=== PATIENT | female | born 1940 | race Caucasian/White ===

== ENCOUNTER 2024-05-10 04:58 | Inpatient (IN) | payer MEDICARE, SELFPAY ==
[2024-05-10] VITALS (27 sets, daily range): BP systolic 103–122; BP diastolic 53–82; PULSE 89–117; RESP 18–29; TEMP 36.4–37.1; O2SAT 96–100; BMI 28.3
--- NOTE | 2024-05-10 | ECHO_ITS ---
Patient Info Name: Ronda Garcia Age: 84 years : 1940 Gender: Female Ht: 66 in Wt: 175 lbs BSA: 1.94 m2 HR: 90 bpm BP: 122 / 82 mmHg Heart Rhythm: Indeterminant Technical Quality: Poor Exam Date: 05/10/2024 9:26 AM Exam Location: Echo Lab Patient Status: Inpatient Admit Date: 05/10/2024 Staff Ordering Physician: Hesham Hyde MD Waste Hand: Maggy Santos RDCS Attending Provider: Hesham Hyde MD Referring Physician: Mary Ellen BROWN; Exam Type: CA echo dop color flow w con Study Info Indications - respiratory failure Complete two-dimensional, color flow and Doppler transthoracic echocardiogram is performed with contrast to opacify the left ventricle and to improve the deliniation of the left ventricle endocardial borders. Reason for Poor Study: poor echocardiographic windows Summary 1. Very technically difficult study with limited views. 2. Left ventricular chamber dimension is normal. 3. Left ventricular systolic function is hyperdynamic, estimated at >70%. 4. Right ventricular systolic function is normal. 5. Left atrial chamber dimension is severely enlarged. 6. Right atrial chamber dimension is mildly enlarged. 7. There is mild tricuspid valve regurgitation. Left Ventricle Left ventricular chamber dimension is normal. Left ventricular systolic function is hyperdynamic, estimated at >70%. Right Ventricle Right ventricular chamber dimension is normal. Right ventricular systolic function is normal. Left Atria Left atrial chamber dimension is severely enlarged. Right Atria Right atrial chamber dimension is mildly enlarged. Aortic Valve The aortic valve is not well visualized. There is no aortic valve regurgitation. Pulmonic Valve The pulmonic valve is not well visualized. Mitral Valve There is trace mitral valve regurgitation. Tricuspid Valve There is mild tricuspid valve regurgitation. Pericardium/Pleural There is no pericardial effusion. Inferior Vena Cava Inferior vena cava is not well visualized. Aorta The aortic root is not well visualized. Left Ventricular Outflow Tract Name Value Normal LVOT 2D LVOT Diameter 1.87 cm LVOT Doppler LVOT Peak Gradient 5 mmHg LVOT Mean Gradient 3 mmHg LVOT VTI 22.06 cm LVOT VTI/AV VTI Ratio 0.93 LVOT Stroke Volume 60.84 ml LVOT CO 6.59 l/min LVOT CI 3.39 L/min/m2 Pulmonic Valve Name Value Normal PV Doppler PV Peak Gradient 3 mmHg Mitral Valve Name Value Normal MV Doppler MV Decel [place]
--- NOTE | ~2024-05-10 | XR_ITS ---
XR chest 1V portable 05/10/2024 11:08 Indication: Shortness of breath Procedure: AP portable chest Comparison: No prior studies for comparison. Findings: Elevated left diaphragm. There is a spiculated masslike density overlying the left hilum, s uspicious for malignancy. Cardiomegaly with pulmonary edema. Probable small pleural effusion. No pneu mothorax. There are degenerative changes of the shoulders. There are dilated bowel loops in the upper abdomen, possibly ileus. Impression: 1: Spiculated masslike density overlies the left hilum, suspicious for bronchogenic carcinoma. Correl ation with contrast-enhanced CT chest recommended. 2: Cardiomegaly with interstitial edema. Reviewed, dictated and finalized at location B. Impression: 1: Spiculated masslike density overlies the left hilum, suspicious for bronchog enic carcinoma. Correlation with contrast-enhanced CT chest recommended. 2: Cardiomegaly with interstitial edema.
--- NOTE | 2024-05-10 04:36 | ADMGEN ---
This patient, Ronda Garcia, was admitted to IMU Room 206-02 at 0345. Patient/family oriented to hospital policies and general routines including ID bracelet, bed and alarms, visiting hours, pain management, procedures, bathroom and other care routines, personal items, smoking policy, room service/diet, and visiting hours. Information on how to activate the Rapid Response Team has been discussed. Patient/Family are encouraged to report perceived risks to care and to ask questions if they do not understand what they are told or what they should do.
--- NOTE | 2024-05-10 05:00 | ECG_ITS ---
Test Date: 2024-05-10 11:08:51 Measurements Intervals [place] Rate: 100 P: 0 AR: 0 QRS: 16 QRSD: 82 T: 153 QT: 305 QTc: 394 Interpretive Statements ATRIAL FIBRILLATION WITH RAPID VENTRICULAR RESPONSE POSSIBLE RIGHT VENTRICULAR CONDUCTION DELAY NONSPECIFIC ST & T-WAVE ABNORMALITY- DIFFUSE LEADS BASELINE ARTIFACT- I, II, III, AVR, AVF, V3 ABNORMAL ECG No previous ECG available for comparison Electronically Signed On 05-10-2024 11:48:40 CDT by Toni Haley D.O.
[2024-05-10 05:28] LABS: Basophils Percent Auto 0.2 % (0.2-1.2); Eosinophils Percent Auto 0.1 % (0-4.4); Hemoglobin 10.7 g/dL (12.0-15.0); Immature Granulocyte Percent A 0.9 % (0-0.5); Lymphocytes Absolute Auto 0.47 K/mm3 (0.9-3.2); Lymphocytes Percent Auto 4.2 % (18.3-44.2); Mean Corpuscular HGB Conc 32.4 g/dl (32-36); Mean Corpuscular Hemoglobin 30.9 pg (26-34); Mean Corpuscular Volume 95.4 fl (80-100); Mean Platelet Volume 10.5 fl (7.4-10.4); Monocytes Absolute Auto 0.6 K/mm3 (0.1-0.6); Monocytes Percent Auto 5.3 % (2.6-8.5); Neutrophils Absolute Auto 10.1 K/mm3 (1.3-6.7); Neutrophils Percent Auto 89.3 % (45.5-73.1); Platelet Count Result 121 k/mm3 (150-375); Red Blood Count 3.46 M/mm3 (4.2-5.4); White Blood Count 11.3 K/mm3 (4.5-10.0)
[2024-05-10 05:37] LABS: INR 1.4; Prothrombin Time 17.5 Seconds (11.1-14.7)
[2024-05-10 05:38] LABS: Blood Urea Nitrogen 46 mg/dL (7-17); Calcium 9.1 mg/dL (8.4-10.2); Carbon Dioxide > 40 mmol/L (22-30); Chloride 84 mmol/L (98-107); Estimated CRCL calculation 29 ml/min; Estimated Glomerular Filt Rate 36; Glucose 333 mg/dL (65-110); Magnesium 1.9 mg/dL (1.6-2.3); Partial Thromboplastin Time 38.5 Seconds (22.3-36.8); Phosphorus 3.9 mg/dL (2.5-4.5); Potassium 5.3 mmol/L (3.4-5.0); Sodium 129 mmol/L (137-145)
--- NOTE | 2024-05-10 07:37 | PM.IMHP ---
H&P: HPI History of Present Illness Date/Time: 05/10/24 07:37 Chief Complaint: Short of breath and chest pain Narrative: 84 years old lady with history of CAD status post stent, type 2 diabetes, CKD stage 3, hyperlipidemia, persistent AFib CHF, COPD admitted because of shortness breath. Patient started have chest pain shortness of breath yesterday, and patient was brought to the outside hospital from skilled nursing to ED for evaluation treatment. Patient had intermittent chest pain located on the left chest, and also patient had a short of breath. Patient denies fever, chills, cough, abdomen pain, nausea vomiting diarrhea. Upon arrival in the ED, patient is afebrile, patient found have hypoxemia, CT of chest shows no PE but pulmonary congestion, and patient also found have elevated troponin. EKG showed sinus rhythm, no specific ST T-wave changes. Patient was transferred to [facility] for further evaluation treatment. When I saw and examined patient in patient room, patient denied chest pain, but still has some shortness breath. Upon arrival, patient was afebrile, patient is on BiPAP 40% oxygen, patient has leukocytosis 11,300, hemoglobin 10.7, platelet 121, sodium 129, potassium 4.3, elevated BUN creatinine ratio 46/1.4 glucose 333, elevated troponin 0.08, repeated EKG showed sinus rhythm no specific ST-T changes Review of Systems Review of Systems: ROS negative except above REPLACED BY [facility] Social History Social History Smoking status: Never smoker Alcohol intake: never Substance use: never Substance use type: does not use Spiritual care concerns: No Meds Home Medications and Allergies Home Medications Medication Instructions Recorded Confirmed Type allopurinol 100 mg tablet 200 mg PO DAILY 05/10/24 05/10/24 History alogliptin 6.25 mg tablet 6.25 mg PO DAILY 05/10/24 05/10/24 History apixaban 2.5 mg tablet (Eliquis) 2.5 mg PO BID 05/10/24 05/10/24 History aspirin 81 mg capsule 81 mg PO DAILY 05/10/24 05/10/24 History atorvastatin 20 mg tablet 20 mg PO HS 05/10/24 05/10/24 History ceftriaxone 1 gram intravenous 1 g IV DAILY 05/10/24 05/10/24 History solution dicloxacillin 500 mg capsule 500 mg PO QID 05/10/24 05/10/24 History fluoxetine 20 mg capsule 20 mg PO DAILY 05/10/24 05/10/24 History furosemide 40 mg tablet 40 mg PO DAILY 05/10/24 05/10/24 History ipratropium 0.5 mg-albuterol 3 mg 3 ml inhalation TID 05/10/24 05/10/24 History (2.5 mg base)/3 mL nebulization soln metoprolol succinate 25 mg 37.5 mg PO DAILY 05/10/24 05/10/24 History tablet,extended release 24 hr nitroglycerin 0.4 mg sublingual 0.4 mg sublingual Q5M PRN Chest 05/10/24 05/10/24 History tablet Pain omeprazole 20 mg capsule,delayed 20 mg PO BID 05/10/24 05/10/24 History release oxybutynin chloride 10 mg 10 mg PO DAILY 05/10/24 05/10/24 History tablet,extended release 24 hr tramadol 50 mg tablet 50 mg PO TID PRN Pain (Scale Score 05/10/24 05/10/24 History 4-6) Allergies Allergy/AdvReac Type Severity Reaction Status Date / Time amiodarone Allergy Dyspnea / Verified 05/10/24 05:12 SOB clindamycin Allergy Rash Verified 05/10/24 05:14 fentanyl Allergy Hallucinati Verified 05/10/24 05:13 ng lisinopril Allergy Cough Verified 05/10/24 05:13 Vital Signs Vital Signs - 24 hr 05/10/24 03:45 05/10/24 04:58 05/10/24 05:45 Temperature 97.6 F Pulse Rate 89 93 90 Respiratory Rate 28 H 28 H Blood Pressure 122/82 Pulse Oximetry 96 100 Oxygen Delivery BiPAP Fraction of Inspired Oxygen 05/10/24 05:47 05/10/24 05:56 Temperature Pulse Rate 98 Respiratory Rate 24 H Blood Pressure Pulse Oximetry 100 100 Oxygen Delivery BiPAP BiPAP Fraction of Inspired Oxygen 40 Exam Narrative: GENERAL: Pleasant, in no acute distress. Well-nourished. HEENT: Face bruises from previous fall at home, EOMI PERRLA - EYES: EOMI. Anicteric. - HENT: Moist mucous membranes. - LUNGS: Coars
[2024-05-10] MEDS: IPRATROPIUM 0.5 MG/ALBUTEROL SULFATE 2.5 MG AMPUL.NEB 3 ML INHALATION ×3 (08:12→20:21)
[2024-05-10 08:14] LABS: NT Pro B Type Natriuretic Pept 13700 pg/mL (19.9-100)
[2024-05-10 08:22] LABS: Glucose Point of Care 318 mg/dl (65-105)
[2024-05-10 08:27] LABS: Alveolar/Arterial O2 Gradient 91.7 mmHg; Base Excess ABG 7.5 mEq/l (+/-2.0); Fractional Inspired Oxygen 40 %; HCO3 ABG 33.6 mEq/l (22.0-26.0); Oxygen Content ABG 15.4 %vol (16.0-22.0); Oxygen Saturation ABG 98.6 % (95.0-100.0); Oxyhemoglobin 97.9 % THb (90.0-100.0); PCO2 ABG 54.8 mmHg (35.0-45.0); PO2 ABG 130.5 mmHg (80.0-100.0); PO2 FiO2 Ratio Arterial Blood 3.26 %; pH ABG 7.405 (7.350-7.450)
[2024-05-10 08:28] LABS: Device NON-INVASIVE VENT; Modified Allen's Test Pass; Site Drawn LEFT RADIAL
--- NOTE | 2024-05-10 08:28 | PCRCNOTE ---
Stat ABG collection late due to equipment error.
[2024-05-10 08:29] LABS: Non-Invasive Expiratory Pressure 7 CMH2O; Non-Invasive Inspiratory Pressure 12 CMH2O; Non-Invasive Vent Rate 12 /MIN
[2024-05-10] MEDS: INSULIN ASPART (*BKC) 100 UNITS/ML SUB-Q (08:44)
[2024-05-10] MEDS: FLUoxetine HCL 20 MG CAPSULE PO (08:45)
[2024-05-10] MEDS: ASPIRIN 81 MG CHEWABLE TABLET PO (08:45)
[2024-05-10] MEDS: METOPROLOL SUCCINATE EXT REL 12.5 MG TABCR 37.5 MG PO (08:45)
[2024-05-10] MEDS: APIXABAN 2.5 MG TABLET PO ×2 (08:45→20:48)
[2024-05-10] MEDS: FUROSEMIDE 40 MG TABLET PO (08:46)
[2024-05-10] MEDS: oxyBUTYnin CHLORIDE XL 5 MG TAB.ER.24 10 MG PO (08:46)
[2024-05-10] MEDS: SITagliptin PHOSPHATE 25 MG TABLET PO (08:46)
[2024-05-10 09:00] LABS: Sodium Urine Random 20 meq/L
[2024-05-10] MEDS: DICLOXACILLIN SODIUM 250 MG CAPSULE 500 MG PO ×4 (09:02→20:48)
[2024-05-10 09:14] LABS: Iron 31 ug/dL (37-170)
[2024-05-10] MEDS: PERFLUTREN LIPID MICROSPHERES 1.5 ML VIAL DILUTED TO 10 ML TOTAL VOLUME IV PUSH (09:25)
[2024-05-10 09:28] LABS: Troponin I 0.065 ng/mL (0.000-0.034)
[2024-05-10 09:29] LABS: Percent Iron Saturation 12 % (20-50)
--- NOTE | 2024-05-10 11:23 | IVDEFINITY ---
Prior to administration of IV Definity the patient was educated on the risks and benefits of the imaging enhancing agent including potential adverse side effects. The patient verbalized understanding. Allergies were verified. No exclusion criteria were identified and at least one of the following inclusion criteria were met: 1) physician request, 2) patient technically difficult to image (per the [place] [employer]ocardi[employer] guidelines of two or more segments not discernable within the apical view), or 3) questionable left ventricular function. ?
--- NOTE | 2024-05-10 11:40 | PM.CNCAR ---
Assessment and Plan Assessment and plan (1) Elevated troponin: Code(s): R79.89 - Other specified abnormal findings of blood chemistry Status: Acute Assessment and Plan: Troponin mildly elevated and downtrending. Probably secondary to hypoxia, CHF, CKD. (2) Acute on chronic heart failure: Code(s): I50.9 - Heart failure, unspecified Status: Acute Assessment and Plan: Continue with IV furosemide for now. Echo showed normal EF, no significant valve disease, normal RV function. Daily weights Strict I&O CHF counseling Wonder if she has undiagnosed CLARENCE. Will check apnea link Trend NTpro BNP Obtain records from [facility] (3) Chest pain: Code(s): R07.9 - Chest pain, unspecified Status: Acute Assessment and Plan: Resolved. (4) Atrial fibrillation: Code(s): I48.91 - Unspecified atrial fibrillation Status: Acute Assessment and Plan: Paroxysmal atrial fibrillation. Rate control with metoprolol. Up titrate as needed. Continue a/c with apixaban (dose adjusted for age, renal function). If she has further syncope/falls may need to consider stopping a/c as the risk of life threatening bleeding may outweigh benefit. History of Present Illness History of Present Illness Consult date/time: 05/10/24 11:40 Requesting physician: Fior Chadwick MD Consult reason: congestive heart failure Reason For Visit: CHF Narrative: Ronda Garcia is an 84 year old female with coronary artery disease and atrial fibrillation. 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 She does not recall the details of her stenting but she said it was years ago and she has had multiple heart attacks since that time. She comes to the hospital now with a chief complaint of shortness of breath. She reports a recent hospitalization at another hospital for the same reason. She did feel better after she was released from the hospital but gradually became more short of breath. She also sustained a fall from her wheelchair which sounds like a result of orthostatic hypotension. She has been diuresed some here and does feel better though she is still short of breath especially with exertion. She denies swelling but does have orthopnea. Yesterday she had some chest pain but it has resolved and she denies any chest pain currently. Review of Systems Review of Systems: All systems reviewed & are unremarkable except as noted in HPI and below [facility] Social History Social History Smoking status: Never smoker Alcohol intake: never Substance use: never Substance use type: does not use Spiritual care concerns: No Meds Home Medications and Allergies Home Medications Medication Instructions Recorded Confirmed Type allopurinol 100 mg tablet 200 mg PO DAILY 05/10/24 05/10/24 History alogliptin 6.25 mg tablet 6.25 mg PO DAILY 05/10/24 05/10/24 History apixaban 2.5 mg tablet (Eliquis) 2.5 mg PO BID 05/10/24 05/10/24 History aspirin 81 mg capsule 81 mg PO DAILY 05/10/24 05/10/24 History atorvastatin 20 mg tablet 20 mg PO HS 05/10/24 05/10/24 History ceftriaxone 1 gram intravenous 1 g IV DAILY 05/10/24 05/10/24 History solution dicloxacillin 500 mg capsule 500 mg PO QID 05/10/24 05/10/24 History fluoxetine 20 mg capsule 20 mg PO DAILY 05/10/24 05/10/24 History furosemide 40 mg tablet 40 mg PO DAILY 05/10/24 05/10/24 History ipratropium 0.5 mg-albuterol 3 mg 3 ml inhalation TID 05/10/24 05/10/24 History (2.5 mg base)/3 mL nebulization soln metoprolol succinate 25 mg 37.5 mg PO DAILY 05/10/24 05/10/24 History tablet,extended release 24 hr nitroglycerin 0.4 mg sublingual 0.4 mg sublingual Q5M PRN Chest 05/10/24 05/10/24 History tablet Pain omeprazole 20 mg capsule,delayed 20 mg PO BID 05/10/24 05/10/24 History release oxybutynin chloride 10 mg 10 mg PO DAILY 05/10/24 05/10/24 History table
[2024-05-10 11:49] LABS: Appearance Urine Clear (Clear); Bacteria Urine None Seen /hpf; Bilirubin Urine Negative (Negative); Blood Urine Negative (Negative); Color Urine Yellow (Yellow); Glucose Urine UA Trace mg/dL (Negative); Ketones Urine Negative (Negative); Leukocyte Esterase Ur Negative LEU/UL (Negative); Nitrate Urine Negative (Negative); Protein Urine 1+ mg/dL (Negative); RBC Urine 0-2 /hpf (0-2); Specific Grav Ur 1.036 (1.001-1.035); Squamous Epithelial Cell Urine None Seen /hpf (Few); Urobilinogen Urine 0.2 mg/dL (<2.0); WBC Urine 0-5 /hpf (0-3); pH Urine 5.5 (5.0-9.0)
[2024-05-10 12:00] LABS: Add Urine Microscopic? YES
[2024-05-10 12:31] LABS: Troponin I 0.061 ng/mL (0.000-0.034)
[2024-05-10 16:26] LABS: Glucose Point of Care 197 mg/dl (65-105)
[2024-05-10 16:26] LABS: Glucose Point of Care 97 mg/dl (65-105)
[2024-05-10] MEDS: FUROSEMIDE INJ 40 MG/4 ML VIAL IV PUSH (16:58)
[2024-05-10] MEDS: ATORVASTATIN 20 MG TABLET PO (20:48)
[2024-05-10 20:58] LABS: Glucose Point of Care 152 mg/dl (65-105)
--- NOTE | 2024-05-10 21:17 | PCRCNOTE ---
Patient refused apnea link tonight.
[2024-05-11] VITALS (23 sets, daily range): BP systolic 104–119; BP diastolic 74–87; PULSE 88–121; RESP 16–20; TEMP 36.1–36.6; O2SAT 94–100
[2024-05-11] MEDS: traMADol HCL (*CRX) 50 MG TABLET PO (06:15)
[2024-05-11 06:37] LABS: Glucose Point of Care 199 mg/dl (65-105)
[2024-05-11 06:59] LABS: Anion Gap 6 mmol/L (4-12); Blood Urea Nitrogen 47 mg/dL (7-17); Calcium 9.2 mg/dL (8.4-10.2); Carbon Dioxide 38 mmol/L (22-30); Chloride 87 mmol/L (98-107); Estimated CRCL calculation 28 ml/min; Estimated Glomerular Filt Rate 33; Glucose 198 mg/dL (65-110); Potassium 4.3 mmol/L (3.4-5.0); Sodium 131 mmol/L (137-145)
[2024-05-11 07:06] LABS: NT Pro B Type Natriuretic Pept 6520 pg/mL (19.9-100)
[2024-05-11] MEDS: IPRATROPIUM 0.5 MG/ALBUTEROL SULFATE 2.5 MG AMPUL.NEB 3 ML INHALATION ×3 (08:09→20:23)
[2024-05-11] MEDS: SITagliptin PHOSPHATE 25 MG TABLET PO (09:17)
[2024-05-11] MEDS: DICLOXACILLIN SODIUM 250 MG CAPSULE 500 MG PO ×3 (09:18→16:34)
[2024-05-11] MEDS: FLUoxetine HCL 20 MG CAPSULE PO (09:18)
[2024-05-11] MEDS: oxyBUTYnin CHLORIDE XL 5 MG TAB.ER.24 10 MG PO (09:18)
[2024-05-11] MEDS: ASPIRIN 81 MG CHEWABLE TABLET PO (09:18)
[2024-05-11] MEDS: APIXABAN 2.5 MG TABLET PO ×2 (09:18→20:44)
[2024-05-11] MEDS: METOPROLOL SUCCINATE EXT REL 12.5 MG TABCR 37.5 MG PO (09:19)
[2024-05-11] MEDS: FUROSEMIDE INJ 40 MG/4 ML VIAL IV PUSH ×2 (09:20→16:34)
--- NOTE | 2024-05-11 09:41 | PM.IMPN ---
Progress Note: A&P Assessment and Plan (1) Chest pain: Code(s): R07.9 - Chest pain, unspecified Status: Acute (2) Acute on chronic heart failure: Code(s): I50.9 - Heart failure, unspecified Status: Acute (3) Acute respiratory failure with hypoxemia: Code(s): J96.01 - Acute respiratory failure with hypoxia Status: Acute (4) COPD exacerbation: Code(s): J44.1 - Chronic obstructive pulmonary disease with (acute) exacerbation Status: Acute (5) Hyponatremia: Code(s): E87.1 - Hypo-osmolality and hyponatremia Status: Acute (6) CKD stage 3b, GFR 30-44 ml/min: Code(s): N18.32 - Chronic kidney disease, stage 3b Status: Acute (7) Elevated troponin: Code(s): R79.89 - Other specified abnormal findings of blood chemistry Status: Acute (8) Uncontrolled type 2 diabetes mellitus: Status: Acute Plan Chest pain Patient has history of CAD, status post stent, patient started have chest pain yesterday Elevated troponins, but EKG shows sinus rhythm no specific ST-T changes The patient is on aspirin 81 mg daily p.o., Eliquis 2.5 mg b.i.d. p.o., Lipitor 20 mg daily p.o.. Follow-up serial troponin, echocardiogram, Palpitation telemetry monitoring Consult wood shop teacher for evaluation treatment Acute on chronic heart failure Shortness breath, possible due to CHF exacerbation CTA showed no PE But Pulmonary Edema, BMP 13,700 Course on bilateral lungs base Pending echocardiogram start Lasix 40 mg b.i.d. IV push Follow-up input output Acute respiratory failure Possible due to CHF and COPD Continue DuoNeb q.6 hours scheduled, albuterol nebulizer Q 4 as needed Continue O2 therapy to keep pulse ox above 94 Paroxysmal AFib Now patient has sinus rhythm Continue Eliquis 2.5 mg b.i.d. p.o. and metoprolol at home dose Uncontrolled type 2 diabetes Continue home medication sitagliptin 25 mg daily p.o., add insulin sliding scale a.c. q.h.s. GERD Continue omeprazole 20 mg daily p.o. Leukocytosis Patient is on ceftriaxone 1 g IV daily, urinalysis pending Consult PT OT coordinator for evaluation and assisting placement Patient may stay more than 2 midnights in the hospital Patient wishes DNR DNI Subjective Date/time seen: 05/11/24 09:41 Interval history: I saw and examined the patient today, patient feels better, patient has anxiety, dyspnea is improving, still significant mild exertion Exam Narrative: GENERAL: Pleasant, in no acute distress. Well-nourished. HEENT: Face bruises from previous fall at home, EOMI PERRLA - EYES: EOMI. Anicteric. - HENT: Moist mucous membranes. - LUNGS: Coarse breath sound bilateral base - CARDIOVASCULAR: Regular rate and rhythm. No murmur. No JVD. - ABDOMEN: Soft, non-tender and non-distended. No palpable masses. - EXTREMITIES: No edema. Peripheral pulses 2+. Non-tender. - NEUROLOGIC: No focal neurological deficits. CN II-XII grossly intact. - PSYCHIATRIC: Awake, Alert and oriented x 3. Appropriate mood and affect. - SKIN: Bruises. - LYMPH: No cervical lymphadenopathy. Objective Data Vital Signs Vital Signs: Vital Signs - 24 hr 05/10/24 10:00 05/10/24 11:34 05/10/24 12:00 Temperature 98.2 F Pulse Rate 110 H 108 H 92 Respiratory Rate 28 H Blood Pressure 106/62 Pulse Oximetry 100 100 Oxygen Delivery Nasal Cannula Oxygen Flow Rate 3 05/10/24 12:00 05/10/24 13:24 05/10/24 13:25 Temperature Pulse Rate 106 H 97 96 Respiratory Rate 20 Blood Pressure Pulse Oximetry 99 Oxygen Delivery Nasal Cannula Oxygen Flow Rate 3 05/10/24 13:34 05/10/24 14:00 05/10/24 15:42 Temperature 98.2 F Pulse Rate 93 109 H 105 H Respiratory Rate 20 28 H Blood Pressure 103/53 L Pulse Oximetry 99 Oxygen Delivery Oxygen Flow Rate 05/10/24 16:00 05/10/24 18:00 05/10/24 20:00 Temperature 98.6 F Pulse Rate 105 H 97 104 H Respiratory Rate 1
[2024-05-11 11:46] LABS: Glucose Point of Care 224 mg/dl (65-105)
--- NOTE | 2024-05-11 12:24 | PM.PNCARD ---
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 Continue with metoprolol Subjective Date/time seen: 05/11/24 12:24 Interval history: no acute events Still feels SOB with activity Limited physical activity at baseline Review of Systems Review of Systems: All systems reviewed & are unremarkable except as noted in HPI and below Exam Const: General: comfortable and no acute distress Other: Able to lie flat Facial ecchymosis HENMT: Face/Nose/Sinus: Normal nares present and no epistaxis Mouth: Yes moist mucous membranes Eyes: Sclera: sclerae normal Pupils: Equal, round and reactive pupils present Resp: Auscultation: clear to auscultation bilaterally and lung sounds not diminished Other: No chest wall tenderness Cardio: Rate: regular rate Rhythm: regular rhythm Heart sounds: no gallops, no murmurs and no rubs Extrem: General: no edema Other: Normal capillary refills Intact distal pulses. Objective Data Vital Signs Vital Signs: Vital Signs - 24 hr 05/10/24 13:24 05/10/24 13:25 05/10/24 13:34 Temperature Pulse Rate 97 96 93 Respiratory Rate 20 20 Blood Pressure Pulse Oximetry 99 Oxygen Delivery Nasal Cannula Oxygen Flow Rate 3 05/10/24 14:00 05/10/24 15:42 05/10/24 16:00 Temperature 36.8 C Pulse Rate 109 H 105 H 105 H Respiratory Rate 28 H Blood Pressure 103/53 L Pulse Oximetry 99 Oxygen Delivery Oxygen Flow Rate 05/10/24 18:00 05/10/24 20:00 05/10/24 20:21 Temperature 37.0 C Pulse Rate 97 104 H 106 H Respiratory Rate 19 20 Blood Pressure 109/71 Pulse Oximetry 98 Oxygen Delivery Oxygen Flow Rate 05/10/24 20:21 05/10/24 20:30 05/10/24 20:00 Temperature Pulse Rate 106 H 101 H 104 H Respiratory Rate 20 19 Blood Pressure Pulse Oximetry 96 98 Oxygen Delivery Nasal Cannula Nasal Cannula Oxygen Flow Rate 3 3 05/10/24 23:41 05/10/24 20:00 05/10/24 22:00 Temperature 37.1 C Pulse Rate 113 H 110 H 117 H Respiratory Rate 18 Blood Pressure 113/65 Pulse Oximetry 98 Oxygen Delivery Oxygen Flow Rate 05/11/24 00:00 05/11/24 02:00 05/11/24 04:00 Temperature 36.4 C Pulse Rate 111 H 114 H 115 H Respiratory Rate 18 Blood Pressure 119/76 Pulse Oximetry 98 Oxygen Delivery Oxygen Flow Rate 05/11/24 04:00 05/11/24 06:00 05/11/24 07:56 Temperature 36.1 C L Pulse Rate 121 H 107 H 108 H Respiratory Rate 16 Blood Pressure 113/87 Pulse Oximetry 99 Oxygen Delivery Oxygen Flow Rate 05/11/24 08:09 05/11/24 08:09 05/11/24 08:23 Temperature Pulse Rate 102 H 102 H 103 H Respiratory Rate 20 20 20 Blood Pressure Pulse Oximetry 96 Oxygen Delivery Nasal Cannula Oxygen Flow Rate 3 05/11/24 09:19 05/11/24 08:00 05/11/24 11:48 Temperature 36.6 C Pulse Rate 101 H 96 99 Respiratory Rate 20 Blood Pressure 116/81 Pulse Oximetry 100 Oxygen Delivery Oxygen Flow Rate Intake/Output Intake/Output: Intake & Output 05/08/24 05/09/24 05/10/24 05/11/24 23:59 23:59 23:59 23:59 Intake Total 780 710 Output Total 450 300 Balance 330 410 Meds/Results Medications: Active Medications Generic Name Dose Route Start Last Admin Trade Name Freq PRN Reason Stop Dose Admin Acetaminophen 650 mg 05/10/24 04:58 Acetaminophen 325 Mg Tablet PO Q4H PRN Mild Pain (1-3) or Fever Al Hydrox/Mg Hydrox/Simethicone 30 ml 05/10/24 04:58 Mag Hydrox/Al Hydrox/Simeth 30 Ml Udc PO QID PRN Dyspepsia Albuterol/Ipratropium 3 ml
[2024-05-11] MEDS: SENNA/DOCUSATE SODIUM TABLET 1 TAB PO ×2 (12:44→16:34)
[2024-05-11] MEDS: ALPRAZolam (*CRX) 0.5 MG TABLET PO (12:45)
[2024-05-11] MEDS: ACETAMINOPHEN 325 MG TABLET 650 MG PO (12:45)
[2024-05-11 16:07] LABS: Glucose Point of Care 191 mg/dl (65-105)
--- NOTE | 2024-05-11 17:04 | PC.NURSE ---
This patient, Ronda Garcia, was transferred to [facility] on 05/11/24 at 1704. Personal belongings sent with patient. Report given to Mary VILLANUEVA. Appropriate documentation sent with patient.
--- NOTE | 2024-05-11 17:35 | PC.NURSE ---
This patient, Ronda Garcia, was received from IMU on 05/11/24 at 1814. Patient/family oriented to unit policies and routines. report received from Rebeca VILLANUEVA
[2024-05-11 20:39] LABS: Glucose Point of Care 202 mg/dl (65-105)
[2024-05-11] MEDS: ATORVASTATIN 20 MG TABLET PO (20:44)
[2024-05-11] MEDS: INSULIN ASPART (*BKC) 100 UNITS/ML SUB-Q (20:45)
[2024-05-12] VITALS (24 sets, daily range): BP systolic 98–131; BP diastolic 61–89; PULSE 75–108; RESP 18–24; TEMP 36.2–36.8; O2SAT 94–100
[2024-05-12] MEDS: IPRATROPIUM 0.5 MG/ALBUTEROL SULFATE 2.5 MG AMPUL.NEB 3 ML INHALATION ×4 (01:57→20:15)
--- NOTE | 2024-05-12 08:05 | PM.IMPN ---
Progress Note: A&P Assessment and Plan (1) Chest pain: Code(s): R07.9 - Chest pain, unspecified Status: Acute (2) Acute on chronic heart failure: Code(s): I50.9 - Heart failure, unspecified Status: Acute (3) Acute respiratory failure with hypoxemia: Code(s): J96.01 - Acute respiratory failure with hypoxia Status: Acute (4) COPD exacerbation: Code(s): J44.1 - Chronic obstructive pulmonary disease with (acute) exacerbation Status: Acute (5) Hyponatremia: Code(s): E87.1 - Hypo-osmolality and hyponatremia Status: Acute (6) CKD stage 3b, GFR 30-44 ml/min: Code(s): N18.32 - Chronic kidney disease, stage 3b Status: Acute (7) Elevated troponin: Code(s): R79.89 - Other specified abnormal findings of blood chemistry Status: Acute (8) Uncontrolled type 2 diabetes mellitus: Status: Acute Plan Chest pain Patient has history of CAD, status post stent, patient started have chest pain yesterday Elevated troponins, but EKG shows sinus rhythm no specific ST-T changes The patient is on aspirin 81 mg daily p.o., Eliquis 2.5 mg b.i.d. p.o., Lipitor 20 mg daily p.o.. Follow-up serial troponin, echocardiogram, Palpitation telemetry monitoring Consult winchman/crane operator for evaluation treatment Acute on chronic heart failure Shortness breath, possible due to CHF exacerbation CTA showed no PE But Pulmonary Edema, BMP 13,700 Course on bilateral lungs base Pending echocardiogram start Lasix 40 mg b.i.d. IV push CXR; Cardiomegaly with interstitial edema. Follow-up input output Acute respiratory failure Possible due to CHF and COPD Continue DuoNeb q.6 hours scheduled, albuterol nebulizer Q 4 as needed Continue O2 therapy to keep pulse ox above 94 Left hilar mass CXR 05/10 reports 1: Spiculated masslike density overlies the left hilum, suspicious for bronchogenic carcinoma. Radiology recommends correlation with contrast-enhanced CT chest recommended. 2: Cardiomegaly with interstitial edema. I reviewed the report of the CTA in [facility], radiologist did not report not mass Will consult field crop i farmworker for evaluation treatment Paroxysmal AFib Now patient has sinus rhythm Continue Eliquis 2.5 mg b.i.d. p.o. and metoprolol at home dose Uncontrolled type 2 diabetes Continue home medication sitagliptin 25 mg daily p.o., add insulin sliding scale a.c. q.h.s. GERD Continue omeprazole 20 mg daily p.o. Leukocytosis Patient is on ceftriaxone 1 g IV daily, urinalysis pending Consult PT OT coordinator for evaluation and assisting placement Patient may stay more than 2 midnights in the hospital Patient wishes DNR DNI Subjective Date/time seen: 05/12/24 08:05 Interval history: I saw and examined the patient today, patient feels better, patient has anxiety, dyspnea is improving, still significant mild exertion Exam Narrative: GENERAL: Pleasant, in no acute distress. Well-nourished. HEENT: Face bruises from previous fall at home, EOMI PERRLA - EYES: EOMI. Anicteric. - HENT: Moist mucous membranes. - LUNGS: Coarse breath sound bilateral base - CARDIOVASCULAR: Regular rate and rhythm. No murmur. No JVD. - ABDOMEN: Soft, non-tender and non-distended. No palpable masses. - EXTREMITIES: No edema. Peripheral pulses 2+. Non-tender. - NEUROLOGIC: No focal neurological deficits. CN II-XII grossly intact. - PSYCHIATRIC: Awake, Alert and oriented x 3. Appropriate mood and affect. - SKIN: Bruises. - LYMPH: No cervical lymphadenopathy. Objective Data Vital Signs Vital Signs: Vital Signs - 24 hr 05/11/24 08:09 05/11/24 08:09 05/11/24 08:23 Temperature Pulse Rate 102 H 102 H 103 H Respiratory Rate 20 20 20 Blood Pressure Pulse Oximetry 96 Oxygen Delivery Nasal Cannula Oxygen Flow Rate 3 05/11/24 09:19 05/11/24 11:48 05/11/24 10:00 Temperature 97.8 F Pulse Rate 101 H 99 104 H Respirat
[2024-05-12 08:15] LABS: Glucose Point of Care 134 mg/dl (65-105)
[2024-05-12] MEDS: SENNA/DOCUSATE SODIUM TABLET 1 TAB PO ×2 (09:12→18:48)
[2024-05-12] MEDS: FLUoxetine HCL 20 MG CAPSULE PO (09:12)
[2024-05-12] MEDS: APIXABAN 2.5 MG TABLET PO ×2 (09:12→21:17)
[2024-05-12] MEDS: oxyBUTYnin CHLORIDE XL 5 MG TAB.ER.24 10 MG PO (09:12)
[2024-05-12] MEDS: traMADol HCL (*CRX) 50 MG TABLET PO ×2 (09:12→21:17)
[2024-05-12] MEDS: ASPIRIN 81 MG CHEWABLE TABLET PO (09:12)
[2024-05-12] MEDS: METOPROLOL SUCCINATE EXT REL 12.5 MG TABCR 37.5 MG PO (09:12)
[2024-05-12] MEDS: SITagliptin PHOSPHATE 25 MG TABLET PO (09:12)
[2024-05-12] MEDS: FUROSEMIDE INJ 40 MG/4 ML VIAL IV PUSH ×2 (09:13→18:48)
[2024-05-12] MEDS: DICLOXACILLIN SODIUM 250 MG CAPSULE 500 MG PO ×4 (09:15→21:17)
[2024-05-12 11:49] LABS: Glucose Point of Care 181 mg/dl (65-105)
--- NOTE | 2024-05-12 14:47 | PM.PNCARD ---
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 b.i.d. Continue with apixaban 2.5 mg b.i.d. Continue with metoprolol Subjective Date/time seen: 05/12/24 14:47 Interval history: No acute events Review of Systems Review of Systems: All systems reviewed & are unremarkable except as noted in HPI and below Exam Const: General: comfortable and no acute distress Other: Able to lie flat Facial ecchymosis HENMT: Face/Nose/Sinus: Normal nares present and no epistaxis Mouth: Yes moist mucous membranes Eyes: Sclera: sclerae normal Pupils: Equal, round and reactive pupils present Resp: Auscultation: clear to auscultation bilaterally and lung sounds not diminished Other: No chest wall tenderness Cardio: Rate: regular rate Rhythm: regular rhythm Heart sounds: no gallops, no murmurs and no rubs Extrem: General: no edema Other: Normal capillary refills Intact distal pulses. Objective Data Vital Signs Vital Signs: Vital Signs - 24 hr 05/11/24 16:00 05/11/24 17:32 05/11/24 18:18 Temperature Pulse Rate 100 101 H Respiratory Rate Blood Pressure Pulse Oximetry 97 Oxygen Delivery Nasal Cannula Oxygen Flow Rate 05/11/24 20:23 05/11/24 20:23 05/11/24 20:33 Temperature Pulse Rate 93 95 Respiratory Rate 20 20 Blood Pressure Pulse Oximetry 99 Oxygen Delivery Nasal Cannula Oxygen Flow Rate 05/11/24 20:00 05/11/24 20:00 05/12/24 00:00 Temperature 36.4 C 36.4 C Pulse Rate 94 89 Respiratory Rate 18 18 Blood Pressure 104/74 98/71 L Pulse Oximetry 100 97 98 Oxygen Delivery Nasal Cannula Oxygen Flow Rate 05/12/24 02:01 05/11/24 23:50 05/12/24 05:08 Temperature Pulse Rate 89 90 Respiratory Rate 20 20 22 H Blood Pressure Pulse Oximetry 99 98 Oxygen Delivery BiPAP BiPAP Oxygen Flow Rate 05/12/24 04:00 05/11/24 22:09 05/12/24 02:09 Temperature 36.6 C Pulse Rate 99 88 92 Respiratory Rate 20 Blood Pressure 116/68 Pulse Oximetry 97 Oxygen Delivery Oxygen Flow Rate 05/12/24 04:00 05/12/24 07:00 05/12/24 07:00 Temperature Pulse Rate 98 84 84 Respiratory Rate 18 Blood Pressure Pulse Oximetry 94 94 Oxygen Delivery Nasal Cannula Oxygen Flow Rate 2 05/12/24 07:00 05/12/24 07:10 05/12/24 08:00 Temperature Pulse Rate 84 86 86 Respiratory Rate 18 18 Blood Pressure Pulse Oximetry Oxygen Delivery Oxygen Flow Rate 05/12/24 09:08 05/12/24 09:12 05/12/24 10:00 Temperature 36.2 C L Pulse Rate 75 84 89 Respiratory Rate 20 Blood Pressure 110/68 114/69 Pulse Oximetry 100 Oxygen Delivery Oxygen Flow Rate 05/12/24 12:00 05/12/24 13:05 05/12/24 13:15 Temperature Pulse Rate 79 82 84 Respiratory Rate 18 18 Blood Pressure Pulse Oximetry Oxygen Delivery Oxygen Flow Rate 05/12/24 14:00 Temperature 36.4 C L Pulse Rate 89 Respiratory Rate 24 H Blood Pressure 114/61 Pulse Oximetry 100 Oxygen Delivery Oxygen Flow Rate Intake/Output Intake/Output: Intake & Output 05/09/24 05/10/24 05/11/24 05/12/24 23:59 23:59 23:59 23:59 Intake Total 780 950 840 Output Total 450 800 550 Balance 330 150 290 Meds/Results Medications: Active Medications Generic Name Dose Route Start Last Admin Trade Name Freq PRN Reason Stop Dose Admin Acetaminophen 650 mg 05/10/24 04:58 05/11/24 12:45 Acetaminophen 325 Mg Tablet PO 650 mg Q4H PRN Administration Mild Pain (1-3) or Fever Al Hydrox/Mg Hydrox/Simethicone 30 ml 05/10/24 04:58 Mag Hydrox/A
[2024-05-12 16:49] LABS: Glucose Point of Care 176 mg/dl (65-105)
[2024-05-12 19:58] LABS: Glucose Point of Care 191 mg/dl (65-105)
[2024-05-12] MEDS: ATORVASTATIN 20 MG TABLET PO (21:17)
[2024-05-13] VITALS (20 sets, daily range): BP systolic 94–115; BP diastolic 60–80; PULSE 83–109; RESP 16–24; TEMP 36.3–36.8; O2SAT 91–100
[2024-05-13] MEDS: IPRATROPIUM 0.5 MG/ALBUTEROL SULFATE 2.5 MG AMPUL.NEB 3 ML INHALATION ×4 (07:44→20:52)
[2024-05-13 07:49] LABS: Glucose Point of Care 141 mg/dl (65-105)
--- NOTE | 2024-05-13 08:11 | PM.IMPN ---
Progress Note: A&P Assessment and Plan (1) Chest pain: Code(s): R07.9 - Chest pain, unspecified Status: Acute (2) Acute on chronic heart failure: Code(s): I50.9 - Heart failure, unspecified Status: Acute (3) Acute respiratory failure with hypoxemia: Code(s): J96.01 - Acute respiratory failure with hypoxia Status: Acute (4) COPD exacerbation: Code(s): J44.1 - Chronic obstructive pulmonary disease with (acute) exacerbation Status: Acute (5) Hyponatremia: Code(s): E87.1 - Hypo-osmolality and hyponatremia Status: Acute (6) CKD stage 3b, GFR 30-44 ml/min: Code(s): N18.32 - Chronic kidney disease, stage 3b Status: Acute (7) Elevated troponin: Code(s): R79.89 - Other specified abnormal findings of blood chemistry Status: Acute (8) Uncontrolled type 2 diabetes mellitus: Status: Acute Plan Chest pain Patient has history of CAD, status post stent, patient started have chest pain yesterday Elevated troponins, but EKG shows sinus rhythm no specific ST-T changes The patient is on aspirin 81 mg daily p.o., Eliquis 2.5 mg b.i.d. p.o., Lipitor 20 mg daily p.o.. Follow-up serial troponin, echocardiogram, Palpitation telemetry monitoring Consult sales systems engineer for evaluation treatment Acute on chronic heart failure Shortness breath, possible due to CHF exacerbation CTA showed no PE But Pulmonary Edema, BMP 13,700 Course on bilateral lungs base Pending echocardiogram start Lasix 40 mg b.i.d. IV push CXR; Cardiomegaly with interstitial edema. Follow-up input output Acute respiratory failure Possible due to CHF and COPD Continue DuoNeb q.6 hours scheduled, albuterol nebulizer Q 4 as needed Continue O2 therapy to keep pulse ox above 94 Left hilar mass CXR 05/10 reports 1: Spiculated masslike density overlies the left hilum, suspicious for bronchogenic carcinoma. Radiology recommends correlation with contrast-enhanced CT chest recommended. 2: Cardiomegaly with interstitial edema. I reviewed the report of the CTA in [facility], radiologist did not report mass Will consult nuclear physics teacher for evaluation treatment Paroxysmal AFib Now patient has sinus rhythm Continue Eliquis 2.5 mg b.i.d. p.o. and metoprolol at home dose Uncontrolled type 2 diabetes Continue home medication sitagliptin 25 mg daily p.o., add insulin sliding scale a.c. q.h.s. GERD Continue omeprazole 20 mg daily p.o. Leukocytosis Patient is on ceftriaxone 1 g IV daily, urinalysis pending Consult PT OT coordinator for evaluation and assisting placement Patient may stay more than 2 midnights in the hospital Patient wishes DNR DNI Subjective Date/time seen: 05/13/24 08:11 Interval history: I saw and examined the patient today, patient feels better, patient denies hemoptysis, smoking history, dyspnea is improving, still significant mild exertion Exam Narrative: GENERAL: Pleasant, in no acute distress. Well-nourished. HEENT: Face bruises from previous fall at home, EOMI PERRLA - EYES: EOMI. Anicteric. - HENT: Moist mucous membranes. - LUNGS: Coarse breath sound bilateral base - CARDIOVASCULAR: Regular rate and rhythm. No murmur. No JVD. - ABDOMEN: Soft, non-tender and non-distended. No palpable masses. - EXTREMITIES: No edema. Peripheral pulses 2+. Non-tender. - NEUROLOGIC: No focal neurological deficits. CN II-XII grossly intact. - PSYCHIATRIC: Awake, Alert and oriented x 3. Appropriate mood and affect. - SKIN: Bruises. - LYMPH: No cervical lymphadenopathy. Objective Data Vital Signs Vital Signs: Vital Signs - 24 hr 05/12/24 09:08 05/12/24 09:12 05/12/24 10:00 Temperature 97.2 F L Pulse Rate 75 84 89 Respiratory Rate 20 Blood Pressure 110/68 114/69 Pulse Oximetry 100 Oxygen Delivery Oxygen Flow Rate Fraction of Inspired Oxygen 05/12/24 12:00 05/12/24 13:05 05/12/24 13:15 Temperature
[2024-05-13 08:19] LABS: Basophils Percent Auto 0.5 % (0.2-1.2); Eosinophils Absolute Auto 0.2 K/mm3 (0-0.3); Eosinophils Percent Auto 2.2 % (0-4.4); Hematocrit 35.4 % (37.0-47.0); Hemoglobin 11.1 g/dL (12.0-15.0); Immature Granulocyte Absolute 0.06 K/mm3 (0.00-0.031); Immature Granulocyte Percent A 0.8 % (0-0.5); Lymphocytes Absolute Auto 0.59 K/mm3 (0.9-3.2); Lymphocytes Percent Auto 7.5 % (18.3-44.2); Mean Corpuscular HGB Conc 31.4 g/dl (32-36); Mean Corpuscular Hemoglobin 30.6 pg (26-34); Mean Corpuscular Volume 97.5 fl (80-100); Mean Platelet Volume 10.7 fl (7.4-10.4); Monocytes Absolute Auto 0.7 K/mm3 (0.1-0.6); Monocytes Percent Auto 9.3 % (2.6-8.5); Neutrophils Absolute Auto 6.3 K/mm3 (1.3-6.7); Neutrophils Percent Auto 79.7 % (45.5-73.1); Platelet Count Result 166 k/mm3 (150-375); Red Blood Count 3.63 M/mm3 (4.2-5.4); White Blood Count 7.9 K/mm3 (4.5-10.0)
[2024-05-13 08:41] LABS: Alanine Aminotransferase 14 U/L (6-35); Albumin Level 3.4 g/dL (3.5-5.1); Alkaline Phosphatase 64 U/L (38-126); Anion Gap 7 mmol/L (4-12); Aspartate Amino Transferase 26 U/L (14-36); Bilirubin,Total 0.7 mg/dL (0.2-1.3); Blood Urea Nitrogen 58 mg/dL (7-17); Calcium 8.9 mg/dL (8.4-10.2); Carbon Dioxide 39 mmol/L (22-30); Chloride 85 mmol/L (98-107); Estimated CRCL calculation 28 ml/min; Estimated Glomerular Filt Rate 33; Glucose 135 mg/dL (65-110); Potassium 4.1 mmol/L (3.4-5.0); Sodium 131 mmol/L (137-145)
[2024-05-13] MEDS: DICLOXACILLIN SODIUM 250 MG CAPSULE 500 MG PO ×4 (10:19→20:47)
[2024-05-13] MEDS: oxyBUTYnin CHLORIDE XL 5 MG TAB.ER.24 10 MG PO (10:19)
[2024-05-13] MEDS: APIXABAN 2.5 MG TABLET PO ×2 (10:20→20:48)
[2024-05-13] MEDS: FLUoxetine HCL 20 MG CAPSULE PO (10:20)
[2024-05-13] MEDS: SITagliptin PHOSPHATE 25 MG TABLET PO (10:20)
[2024-05-13] MEDS: SENNA/DOCUSATE SODIUM TABLET 1 TAB PO (10:20)
[2024-05-13] MEDS: ASPIRIN 81 MG CHEWABLE TABLET PO (10:20)
[2024-05-13 11:48] LABS: Glucose Point of Care 174 mg/dl (65-105)
[2024-05-13 12:32] LABS: NT Pro B Type Natriuretic Pept 5220 pg/mL (19.9-100)
[2024-05-13] MEDS: FUROSEMIDE INJ 40 MG/4 ML VIAL IV PUSH ×2 (12:42→17:45)
--- NOTE | 2024-05-13 13:09 | PM.CNPUL ---
Assessment and Plan Assessment and plan (1) Abnormal CXR: Code(s): R93.89 - Abnormal findings on diagnostic imaging of other specified body structures Status: Acute Assessment and Plan: [facility] angiogram of the chest report on 05/09/2024 showed no pulmonary embolism. Markedly elevated left hemidiaphragm with chronic left basilar atelectasis compared to 04/19/2024. Similar interstitial infiltrates suspicious for pulmonary edema. No suspicious nodules or masses. No effusion or pneumothorax. Please see dictated report in the patient's chart. Current chest x-ray from 05/10/24 showed markedly elevated left hemidiaphragm with possible hilar spiculated mass but this was not seen on a CT scan from 1 day earlier. This hilar abnormality likely related to atelectasis. Patient is a never smoker and I am not concerned that this is bronchogenic carcinoma. Patient has no infectious complaints and I am not concerned about an infection. I do not feel there is a need for antibiotics at this time. No further workup at this time. Will sign off. Call with questions. History of Present Illness History of Present Illness Consult date: 05/13/24 Chief complaint: CHF Narrative: 05/13/2024: This is a new pulmonary consult for left hilar mass. 84-year-old with a history of coronary artery disease, diabetes, CKD, hyperlipidemia, congestive heart failure, AFib and COPD diagnosed a few months ago. Patient is a never smoker and was exposed to secondhand smoke from her father but none since. A few months ago she was diagnosed with COPD by her PCP and she describes doing an in office spirometry test and then being placed on DuoNebs t.i.d.. The patient states that the DuoNebs t.i.d. do not provide her any benefit. Patient had a fall in December of 2023 and since then has been on 3 L nasal cannula 24-7. On 05/09/2024 the patient had chest pain and was [place] [facility] [place] [address] angiogram of the chest showed no pulmonary embolism. Markedly elevated left hemidiaphragm with chronic left basilar atelectasis compared to 04/19/2024. Similar interstitial infiltrates suspicious for pulmonary edema. No suspicious nodules or masses. No effusion or pneumothorax. Please see dictated report in the patient's chart. Patient had positive troponins and was transferred to [facility]. The patient tells me she has had shortness of breath and dyspnea on exertion worsening over the last 3-4 weeks. She denies any fever, chills, rigors, cough, phlegm production or hemoptysis. She denies PND, and pedal edema. She sleeps in a recliner about a 30 degree angle for the last 2 years. 05/13/2024: Patient is afebrile. She denies any shortness of breath at rest. White blood cell count is 7.9, creatinine is 1.50. BNP is 5220 decreased from 6520 on 05/04 and 13,700 on 05/10/2024. DATA XR chest 1V portable 05/10/2024 11:08 Indication: Shortness of breath Procedure: AP portable chest Comparison: No prior studies for comparison. Findings: Elevated left diaphragm. There is a spiculated masslike density overlying the left hilum, suspicious for malignancy. Cardiomegaly with pulmonary edema. Probable small pleural effusion. No pneumothorax. There are degenerative changes of the shoulders. There are dilated bowel loops in the upper abdomen, possibly ileus. Impression: 1: Spiculated masslike density overlies the left hilum, suspicious for bronchogenic carcinoma. Correlation with contrast-enhanced CT chest recommended. 2: Cardiomegaly with interstitial edema. Review of Systems Constitutional: Constitutional: Reports no additional constitutional complaints Eyes: Eyes: Reports no additional eye complaints ENT: Reports system reviewed and no additional complaints, except as documented Cardiovascular: Cardiovascular: Reports no ad
[2024-05-13 15:43] LABS: Osmolality, Urine 387 mOsm/kg (50-1200)
[2024-05-13 17:12] LABS: Glucose Point of Care 162 mg/dl (65-105)
[2024-05-13] MEDS: ATORVASTATIN 20 MG TABLET PO (20:48)
--- NOTE | 2024-05-13 21:28 | ECG_ITS ---
Test Date: 2024-05-13 21:42:12 Measurements Intervals [place] Rate: 94 P: 0 OR: 0 QRS: 14 QRSD: 81 T: 95 QT: 372 QTc: 467 Interpretive Statements ATRIAL FIBRILLATION EARLY PRECORDIAL R/S TRANSITION BORDERLINE ST-T WAVE ABNORMALITY- DIFFUSE LEADS BASELINE ARTIFACT- I, III, AVR, AVL, AVF, V2 ABNORMAL ECG Compared to ECG 05/10/2024 11:08:51 NO SIGNIFICANT CHANGE Electronically Signed On 05-14-2024 06:26:37 CDT by Toni Haley D.O.
[2024-05-13 21:49] LABS: Glucose Point of Care 199 mg/dl (65-105)
[2024-05-13] MEDS: MORPHINE SULFATE (*CRX) 2 MG/ML INJ 1 MG IV PUSH (22:13)
[2024-05-13] MEDS: METOPROLOL SUCCINATE EXT REL 12.5 MG, METOPROLOL SUCCINATE EXT REL 25 MG 37.5 MG PO (22:14)
[2024-05-13 22:46] LABS: INR 1.4; Prothrombin Time 17.9 Seconds (11.1-14.7)
[2024-05-13 22:47] LABS: Partial Thromboplastin Time 37.7 Seconds (22.3-36.8)
[2024-05-13 23:10] LABS: Anion Gap 10 mmol/L (4-12); Blood Urea Nitrogen 62 mg/dL (7-17); Carbon Dioxide 36 mmol/L (22-30); Chloride 83 mmol/L (98-107); Estimated CRCL calculation 27 ml/min; Estimated Glomerular Filt Rate 31; Glucose 172 mg/dL (65-110); Magnesium 1.9 mg/dL (1.6-2.3); Phosphorus 4.6 mg/dL (2.5-4.5); Potassium 3.7 mmol/L (3.4-5.0); Sodium 129 mmol/L (137-145)
[2024-05-13 23:29] LABS: Troponin I 0.052 ng/mL (0.000-0.034)
[2024-05-14] VITALS (9 sets, daily range): BP systolic 113–129; BP diastolic 61–80; PULSE 89–102; RESP 16–20; TEMP 36.3–36.7; O2SAT 95–98
[2024-05-14 05:17] LABS: Basophils Percent Auto 0.4 % (0.2-1.2); Eosinophils Absolute Auto 0.2 K/mm3 (0-0.3); Eosinophils Percent Auto 1.7 % (0-4.4); Hematocrit 36.6 % (37.0-47.0); Immature Granulocyte Absolute 0.04 K/mm3 (0.00-0.031); Immature Granulocyte Percent A 0.4 % (0-0.5); Lymphocytes Absolute Auto 0.79 K/mm3 (0.9-3.2); Lymphocytes Percent Auto 8.7 % (18.3-44.2); Mean Corpuscular HGB Conc 32.8 g/dl (32-36); Mean Corpuscular Hemoglobin 31.3 pg (26-34); Mean Corpuscular Volume 95.3 fl (80-100); Mean Platelet Volume 10.5 fl (7.4-10.4); Monocytes Absolute Auto 0.7 K/mm3 (0.1-0.6); Monocytes Percent Auto 7.6 % (2.6-8.5); Neutrophils Absolute Auto 7.4 K/mm3 (1.3-6.7); Neutrophils Percent Auto 81.2 % (45.5-73.1); Platelet Count Result 222 k/mm3 (150-375); Red Blood Count 3.84 M/mm3 (4.2-5.4); Red Cell Distribution Width 14.2 % (11.5-14.5); White Blood Count 9.1 K/mm3 (4.5-10.0)
[2024-05-14 05:30] LABS: Alanine Aminotransferase 16 U/L (6-35); Alkaline Phosphatase 77 U/L (38-126); Anion Gap 12 mmol/L (4-12); Aspartate Amino Transferase 35 U/L (14-36); Bilirubin,Total 0.9 mg/dL (0.2-1.3); Blood Urea Nitrogen 61 mg/dL (7-17); Calcium 9.3 mg/dL (8.4-10.2); Carbon Dioxide 36 mmol/L (22-30); Chloride 83 mmol/L (98-107); Estimated CRCL calculation 22 ml/min; Estimated Glomerular Filt Rate 25; Glucose 202 mg/dL (65-110); Potassium 3.9 mmol/L (3.4-5.0); Sodium 131 mmol/L (137-145)
--- NOTE | 2024-05-14 07:41 | PM.IMPN ---
Progress Note: A&P Assessment and Plan (1) Chest pain: Code(s): R07.9 - Chest pain, unspecified Status: Acute (2) Acute on chronic heart failure: Code(s): I50.9 - Heart failure, unspecified Status: Acute (3) Acute respiratory failure with hypoxemia: Code(s): J96.01 - Acute respiratory failure with hypoxia Status: Acute (4) COPD exacerbation: Code(s): J44.1 - Chronic obstructive pulmonary disease with (acute) exacerbation Status: Acute (5) Hyponatremia: Code(s): E87.1 - Hypo-osmolality and hyponatremia Status: Acute (6) CKD stage 3b, GFR 30-44 ml/min: Code(s): N18.32 - Chronic kidney disease, stage 3b Status: Acute (7) Elevated troponin: Code(s): R79.89 - Other specified abnormal findings of blood chemistry Status: Acute (8) Uncontrolled type 2 diabetes mellitus: Status: Acute Plan Chest pain Patient has history of CAD, status post stent, patient started have chest pain yesterday Elevated troponins, but EKG shows sinus rhythm no specific ST-T changes The patient is on aspirin 81 mg daily p.o., Eliquis 2.5 mg b.i.d. p.o., Lipitor 20 mg daily p.o.. Follow-up serial troponin, echocardiogram, Palpitation telemetry monitoring Consult manufacturer representative for evaluation treatment Acute on chronic heart failure Shortness breath, possible due to CHF exacerbation CTA showed no PE But Pulmonary Edema, BMP 13,700 Course on bilateral lungs base echocardiogram 1. Very technically difficult study with limited views. 2. Left ventricular chamber dimension is normal. 3. Left ventricular systolic function is hyperdynamic, estimated at >70%. 4. Right ventricular systolic function is normal. 5. Left atrial chamber dimension is severely enlarged. 6. Right atrial chamber dimension is mildly enlarged. 7. There is mild tricuspid valve regurgitation. on Lasix 40 mg b.i.d. IV push CXR; Cardiomegaly with interstitial edema.on 05/10 Follow-up input output: negative balance since admission change to oral lasix 40 mg daily p.o. Follow with manufacturer representative outpatient Acute respiratory failure Possible due to CHF and COPD Continue DuoNeb q.6 hours scheduled, albuterol nebulizer Q 4 as needed Continue O2 therapy to keep pulse ox above 94 resolves off O2 therapy Left hilar mass CXR 05/10 reports 1: Spiculated masslike density overlies the left hilum, suspicious for bronchogenic carcinoma. Radiology recommends correlation with contrast-enhanced CT chest recommended. 2: Cardiomegaly with interstitial edema. I reviewed the report of the CTA in [facility], radiologist did not report mass consult machine cloth examiner for evaluation treatment Appreciate Dr. Mayberry consultation, Dr. Mayberry considers hilar abnormality related to atelectasis, not concerned of bronchogenic carcinoma of infection Paroxysmal AFib Now patient has sinus rhythm Continue Eliquis 2.5 mg b.i.d. p.o. and metoprolol at home dose Uncontrolled type 2 diabetes Continue home medication sitagliptin 25 mg daily p.o., received insulin sliding scale a.c. q.h.s. GERD Continue omeprazole 20 mg daily p.o. Leukocytosis received ceftriaxone 1 g IV daily, urinalysis unremarkable Leukocytosis is resolved dc abx Consult PT OT coordinator for evaluation and assisting placement Patient wishes DNR DNI Subjective Date/time seen: 05/14/24 07:41 Interval history: I saw and examined the patient today, patient denies dyspnea, chest pain, abdomen pain, nausea vomiting. Patient is afebrile, blood pressure stable, labs reviewed Exam Narrative: GENERAL: Pleasant, in no acute distress. Well-nourished. HEENT: Face bruises from previous fall at home, EOMI PERRLA - EYES: EOMI. Anicteric. - HENT: Moist mucous membranes. - LUNGS: Coarse breath sound bilateral base - CARDIOVASCULAR: Regular rate and rhythm. No murmur. No JVD. - ABDOMEN: Soft, non-te
[2024-05-14 08:02] LABS: Glucose Point of Care 179 mg/dl (65-105)
[2024-05-14] MEDS: oxyBUTYnin CHLORIDE XL 5 MG TAB.ER.24 10 MG PO (09:14)
[2024-05-14] MEDS: FLUoxetine HCL 20 MG CAPSULE PO (09:14)
[2024-05-14] MEDS: ASPIRIN 81 MG CHEWABLE TABLET PO (09:14)
[2024-05-14] MEDS: APIXABAN 2.5 MG TABLET PO (09:14)
[2024-05-14] MEDS: SITagliptin PHOSPHATE 25 MG TABLET PO (09:15)
[2024-05-14] MEDS: FUROSEMIDE 40 MG TABLET PO (09:15)
[2024-05-14] MEDS: METOPROLOL SUCCINATE EXT REL 12.5 MG TABCR 37.5 MG PO (09:19)
[2024-05-14 11:51] LABS: Glucose Point of Care 166 mg/dl (65-105)
--- NOTE | 2024-05-14 14:31 | PM.PNCARD ---
Progress Note: A&P Assessment and Plan (1) Atrial fibrillation: Code(s): I48.91 - Unspecified atrial fibrillation Status: Acute Assessment and Plan: Paroxysmal atrial fibrillation. Rate controlled with metoprolol. Continue a/c with apixaban (dose adjusted for age, renal function). If she has further syncope/falls may need to consider stopping a/c as the risk of life threatening bleeding may outweigh benefit. (2) Acute on chronic heart failure: Code(s): I50.9 - Heart failure, unspecified Status: Acute Assessment and Plan: Improved with diuresis. Now back on home dose of lasix. (3) Chest pain: Code(s): R07.9 - Chest pain, unspecified Status: Acute Assessment and Plan: Resolved Plan Cardiology will sign off. She plans to follow with her established [facility] plater in [place], [place] Subjective Date/time seen: 05/14/24 14:31 Interval history: Cardiology follow up for atrial fibrillation, CHF She is feeling better today. Denies shortness of breath, palpitations, chest pain. Review of Systems Review of Systems: All systems reviewed & are unremarkable except as noted in HPI and below Exam Const: General: comfortable, no acute distress, alert and awake Orientation/consciousness: patient oriented x3 Other: Able to lie flat Facial ecchymosis HENMT: Head: normal to inspection Face/Nose/Sinus: Normal nares present and no epistaxis Mouth: Yes moist mucous membranes Other: extensive facial ecchymosis Eyes: General: appearance normal, both eyes and all related structures Sclera: sclerae normal Pupils: Equal, round and reactive pupils present Other: periorbital ecchymosis Neck: Neck: normal visual inspection, supple and no JVD Carotids: normal carotid upstroke Resp: Effort & Inspection: normal respiratory effort Auscultation: clear to auscultation bilaterally and rales Cardio: Rate: regular rate Rhythm: regular rhythm and abnormal rhythm irregularly irregular Heart sounds: S1 normal heart sound present, S2 normal heart sound present, no gallops, no murmurs and no rubs GI: Auscultation: normal bowel sounds Skin: General skin exam: normal color Neuro: General: patient oriented x3 Cranial nerves: Yes Equal, round and reactive pupils present Extrem: General: normal to inspection and no edema Other: Normal capillary refills Intact distal pulses. Psych: Appearance: grossly normal Mental Status: mental status grossly normal Objective Data Vital Signs Vital Signs: Vital Signs - 24 hr 05/13/24 16:00 05/13/24 17:28 05/13/24 19:20 Temperature 36.7 C Pulse Rate 96 94 98 Respiratory Rate 16 20 Blood Pressure 115/80 110/72 Pulse Oximetry 100 97 Oxygen Delivery Oxygen Flow Rate 05/13/24 20:24 05/13/24 20:24 05/13/24 20:34 Temperature Pulse Rate 109 H 109 H 99 Respiratory Rate 20 20 Blood Pressure Pulse Oximetry 96 Oxygen Delivery Nasal Cannula Oxygen Flow Rate 1 05/13/24 22:14 05/13/24 20:00 05/14/24 00:00 Temperature Pulse Rate 104 H 92 102 H Respiratory Rate Blood Pressure Pulse Oximetry Oxygen Delivery Oxygen Flow Rate 05/14/24 05:09 05/14/24 04:00 05/14/24 09:17 Temperature 36.3 C L Pulse Rate 98 96 94 Respiratory Rate 20 16 Blood Pressure 113/80 129/61 Pulse Oximetry 95 97 Oxygen Delivery Oxygen Flow Rate 05/14/24 09:19 05/14/24 08:00 05/14/24 12:00 Temperature Pulse Rate 94 98 98 Respiratory Rate Blood Pressure Pulse Oximetry Oxygen Delivery Oxygen Flow Rate 05/14/24 09:15 05/14/24 14:00 Temperature 36.7 C Pulse Rate 89 Respiratory Rate 19 Blood Pressure 116/73 Pulse Oximetry 97 98 Oxygen Delivery Nasal Cannula Oxygen Flow Rate 1 Intake/Output Intake/Output: Intake & Output 05/11/24 05/12/24 05/13/24 05/14/24 23:59 23:59 23:59 23:59 Intake Total 950 1320 600 370 Output Total 800
--- NOTE | 2024-05-14 14:59 | PM.DS ---
DS: Admitting Diagnosis Discharge Date 05/14 Admitting Diagnosis (1) Chest pain: Code(s): R07.9 - Chest pain, unspecified Status: Acute (2) Acute on chronic heart failure: Code(s): I50.9 - Heart failure, unspecified Status: Acute (3) Acute respiratory failure with hypoxemia: Code(s): J96.01 - Acute respiratory failure with hypoxia Status: Acute (4) COPD exacerbation: Code(s): J44.1 - Chronic obstructive pulmonary disease with (acute) exacerbation Status: Acute (5) Hyponatremia: Code(s): E87.1 - Hypo-osmolality and hyponatremia Status: Acute (6) CKD stage 3b, GFR 30-44 ml/min: Code(s): N18.32 - Chronic kidney disease, stage 3b Status: Acute (7) Elevated troponin: Code(s): R79.89 - Other specified abnormal findings of blood chemistry Status: Acute (8) Uncontrolled type 2 diabetes mellitus: Status: Acute DS: Summary Hospital Course Hospital Course: Per HP: 84 years old lady with history of CAD status post stent, type 2 diabetes, CKD stage 3, hyperlipidemia, persistent AFib CHF, COPD admitted because of shortness breath. Patient started have chest pain shortness of breath yesterday, and patient was brought to the outside hospital from alf to ED for evaluation treatment. Patient had intermittent chest pain located on the left chest, and also patient had a short of breath. Patient denies fever, chills, cough, abdomen pain, nausea vomiting diarrhea. Upon arrival in the ED, patient is afebrile, patient found have hypoxemia, CT of chest shows no PE but pulmonary congestion, and patient also found have elevated troponin. EKG showed sinus rhythm, no specific ST T-wave changes. Patient was transferred to [facility] for further evaluation treatment. When I saw and examined patient in patient room, patient denied chest pain, but still has some shortness breath. Upon arrival, patient was afebrile, patient is on BiPAP 40% oxygen, patient has leukocytosis 11,300, hemoglobin 10.7, platelet 121, sodium 129, potassium 4.3, elevated BUN creatinine ratio 46/1.4 glucose 333, elevated troponin 0.08, repeated EKG showed sinus rhythm no specific ST-T changes The following med issues have been addressed during hospitalization Chest pain Patient has history of CAD, status post stent, patient started have chest pain yesterday Elevated troponins, but EKG shows sinus rhythm no specific ST-T changes The patient is on aspirin 81 mg daily p.o., Eliquis 2.5 mg b.i.d. p.o., Lipitor 20 mg daily p.o.. Follow-up serial troponin, margin high, trending down, echocardiogram 1. Very technically difficult study with limited views. 2. Left ventricular chamber dimension is normal. 3. Left ventricular systolic function is hyperdynamic, estimated at >70%. 4. Right ventricular systolic function is normal. 5. Left atrial chamber dimension is severely enlarged. 6. Right atrial chamber dimension is mildly enlarged. 7. There is mild tricuspid valve regurgitation. Palpitation telemetry monitoring, no significant arrhythmia Consult facilities painter for evaluation treatment Acute on chronic heart failure Shortness breath, possible due to CHF exacerbation CTA showed no PE But Pulmonary Edema, BMP 13,700 Course on bilateral lungs base echocardiogram 1. Very technically difficult study with limited views. 2. Left ventricular chamber dimension is normal. 3. Left ventricular systolic function is hyperdynamic, estimated at >70%. 4. Right ventricular systolic function is normal. 5. Left atrial chamber dimension is severely enlarged. 6. Right atrial chamber dimension is mildly enlarged. 7. There is mild tricuspid valve regurgitation. on Lasix 40 mg b.i.d. IV push CXR; Cardiomegaly with interstitial edema.on 05/10 Follow-up input output: negative balance since admission change to oral lasix 40 mg daily p.o. Follow with facilities painter thi
[2024-05-14 16:58] LABS: Glucose Point of Care 155 mg/dl (65-105)
== END 2024-05-14 17:35 | DRG 291 ==
LOC: ANHIMU 06:39 → ANH2MED 05-11 17:03
PROVIDERS: Internal Medicine Pulmonary Disease; Nurse Practitioner; Admitting Provider Internal Medicine; PCP Family Medicine; Visit Provider Hospitalist
DX: I50.33 Acute on chronic diastolic (congestive) heart failure (principal); J96.01 Acute respiratory failure with hypoxia; J44.1 Chronic obstructive pulmonary disease with (acute) exacerbation; E87.1 Hypo-osmolality and hyponatremia; I24.89 Other forms of acute ischemic heart disease; J98.11 Atelectasis; R07.9 Chest pain, unspecified; E11.22 Type 2 diabetes mellitus with diabetic chronic kidney disease; N18.32 Chronic kidney disease, stage 3b; R79.89 Other specified abnormal findings of blood chemistry; I25.10 Atherosclerotic heart disease of native coronary artery without angina pectoris; I48.0 Paroxysmal atrial fibrillation; K21.9 Gastro-esophageal reflux disease without esophagitis; Z95.5 Presence of coronary angioplasty implant and graft; D72.829 Elevated white blood cell count, unspecified
CPT/HCPCS: 36415; 36600; 71045; 80048; 80053; 81001; 82728; 82805; 82948; 83540; 83550; 83735; 83880; 83935; 84100; 84300; 84484; 85025; 85610; 85730; 93005; 94002; 94003; 94640; 97161; 97166; 97530; 97535; A9270; C8929; J0696; J1815; J1940; J2270; Q9957